=== PATIENT | female | born 1940 | race Two or more races ===

== ENCOUNTER 2024-10-06 17:57 | Inpatient (IN) | payer MEDICARE, MEDICAID ==
[~2024-10-06] VITALS: Ht 149.9 cm; Wt 40.4 kg
--- NOTE | 2024-10-06 18:54 | DVH ---
CHEST RADIOGRAPH REASON FOR EXAM: HTN COMPARISON: None TECHNIQUE: One view of the chest is provided FINDINGS: The cardiomediastinal silhouette is within normal limits for technique. There is aortic ath erosclerosis. There is no focal airspace disease. There is no significant pleural effusion. No acute bony abnormality is identified. IMPRESSION: No radiographic evidence of acute cardiopulmonary process.
--- NOTE | 2024-10-06 19:04 | ED.PDOC ---
HPI Comments HPI: This is a 83 year old female presenting to the ED with chief complaint of HTN. Patient reports that her blood pressure has been elevated since this morning, with her systolic BP being from 210-230s and her diastolic being around 140s. Patient relays that she took 2 doses of Losartan with no relief noted. Patient states she has been experiencing associated headache to the back of her head and generalized weakness. Patient notes she currently has a bladder infection at this time. Patient denies any N/V/D, chest pain, SOB, dizziness, fever, or chills. Initial Vitals BP: 166/72 HR: 76 RR: 16 O2 Sat: 98% Temp: 98.7F Past Medical history: HTN Past Surgical history: Denies Medications: Losartan Social History: Denies smoking, ETOH, and drug use. Allergies: Penicillins HPI: Poor Historian. Past Medical History: Past Surgical History: REVIEW OF SYSTEMS: CONSTITUTIONAL: Denies acute: fever, diaphoresis, chills, HEAD: Denies acute: photophobia Eyes: Denies acute: Double vision, vision loss, eye pain, eye discharge. EARS: Denies acute: tinnitus, hearing loss, ear discharge, ear pain, THROAT: Denies acute: sore throat, swelling, difficulty swallowing , pain with swallowing, change in voice. NECK: Denies acute: neck pain, neck swelling, stiff neck. HEART: Denies acute : chest pain, palpitations, LUNGS: Denies acute: SOB, wheezing, cough, hemoptysis ABDOMEN: Denies acute: abdominal pain, Nausea, Vomiting, diarrhea, melena , hematemesis, hematochezia SKIN: Denies acute: rash, redness, lesions, itchiness. EXTREMITIES: Denies acute: calf pain, numbness, tingling, weakness, denies pain in extremity. Denies acute: Low back pain. Neuro: Denies acute: focal neurological deficit, motor or sensory focal neurological deficit, tremors, seizure like activity, confusion, dizziness, change in mental status, loss of bowel or bladder function, cauda equina like symptoms. : Denies acute: dysuria, hematuria, flank pain, increase in urinary frequency. PSYCH: Denies acute: hallucination, suicidal ideation, homicidal ideation. FEMALE: Denies acute: abnormal vaginal bleeding, foul odor, unusual discharge. PHYSICAL EXAM: General: ---mild-----acute distress, awake and alert. Head: normocephalic, atraumatic. Neck: supple, trachea is midline, no swelling. Throat: Normal phonation. Eyes:, no erythema, no purulent discharge, no proptosis, no icterus. Heart: regular rate, regular rhythm, no significant murmur appreciated. Lungs: no apparent respiratory distress, Able to speak in full sentences. No wheezing, no rhonchi, no crackles. No stridors Clear to auscultation bilaterally. Abdomen: non tender to palpation, non distended, soft, no guarding, no rebound, + bowel sounds. Neuro: Awake, Alert, oriented to name, self, situation, follows commands GCS=15. Speech is normal. Skin: no petechia, no purpura, no cyanosis, non-pale, not jaundice. Lower extremities: --no - Pitting edema no deformity, no focal swelling, no calf TTP. Makes eye contact. moves all four extremities. Face: no apparent facial droop. ED COURSE: DISCLAIMER: This medical document was created using an electronic medical record system with voice recognition software and computerized dictation system. Although this document has been carefully reviewed, there might still be some phonetic and typographical errors. Occasional wrong-word or "sound-alike" substitutions may have occurred due to the inherent limitations of voice recognition software. These areas are purely typographical due to imperfections of the software programs and do not reflect any compromise in the patient's medical care. Please read the chart carefully and recognize, using context, where these substitutions have occurred. Chief Complaint: High Blood Pressure Time Seen by MD: 19:01 Reviewed Notes: Medications, Allergies Allergies: Coded Allergies: Penicillins (Verified Allergy, Unknown, 10/06/24) Information Source: Patient Mode of Arrival: EMS Was a procedure done? Was a procedure done?: No CP Differential Dx Differential Diagnosis: N/A Differential Diagnosis: Other (DDX include renal disease, thyroid disease, electrolyte abnormality, increased salt intake, medications non-compliance, undiagnosed HTN, Hypertensive crisis, hypertensive urgency., drug toxicity.) X-Ray, Labs, Meds, VS Vital Signs Date Time Temp Pulse Resp B/P (MAP) Pulse Ox O2 Delivery O2 Flow Rate FiO2 10/06/24 20:27 98.3 72 14 188/81 (116) 97 98.3 169/77 (107) 10/06/24 18:11 98.7 76 16 166/72 (103) 98 98.7 Lab Test 10/06/24 19:58 10/06/24 18:58 Range/Units Troponin I High Sensitivity 19 19 </=34 ng/L White Blood Count 6.9 4.4-10.8 10^3/uL Red Blood Count 4.85 4.0-5.20 10^6/uL Hemoglobin 14.5 12.2-16.2 g/dL Hematocrit 41.4 36.0-46.0 % Mean Corpuscular Volume 85.5 80.0-100.0 fL Mean Corpuscular Hemoglobin 29.8 28.0-32.0 pg Mean Corpuscular Hemoglobin Concent 34.9 32.0-36.0 g/dL Red Cell Distribution Width 12.5 11.8-14.3 % Platelet Count 297 140-450 10^3/uL Mean Platelet Volume 8.2 6.9-10.8 fL Neutrophils (%) (Auto) 71.0 37.0-80.0 % Lymphocytes (%) (Auto) 21.5 10.0-50.0 % Monocytes (%) (Auto) 5.4 0.0-12.0 % Eosinophils (%) (Auto) 1.3 0.0-7.0 % Basophils (%) (Auto) 0.8 0.0-2.0 % Neutrophils # (Auto) 4.9 1.6-8.6 10 ^3/uL Lymphocytes # (Auto) 1.5 0.4-5.4 10 ^3/uL Monocytes # (Auto) 0.4 0-1.3 10 ^3/uL Eosinophils # (Auto) 0.1 0-0.8 10 ^3/uL Basophils # (Auto) 0.1 0-0.2 10 ^3/uL Nucleated Red Blood Cells 0.0 % Sodium Level 127 L 136-145 mmol/L Potassium Level 4.5 3.5-5.1 mmol/L Chloride Level 94 L 98-107 mmol/L Carbon Dioxide Level 24 20-31 mmol/L Anion Gap 9 5-15 Blood Urea Nitrogen 12 9-23 mg/dL Creatinine 0.79 0.550-1.02 mg/dL Glomerular Filtration Rate Calc 75 >90 mL/min BUN/Creatinine Ratio 15.2 10.0-20.0 Serum Glucose 103 74-106 mg/dL Calcium Level 9.6 8.7-10.4 mg/dL [address] [address] Ph: [phone] DIAGNOSTIC IMAGING Diagnostic Imaging Report : [id number] Signed PATIENT: URI BURLESON ACCT: [id number] UNIT: [id number] : 1940 LOC: ER ROOM / BED: / AGE / SEX: 83 / F ADM STATUS: REG ER SERVICE 30 ORDERING PHYSICIAN: LALITA ZAIDI DO PROCEDURE(s): HWOCT - HEAD WITHOUT CONTRAST REASON: htn ORDER NUMBER(s): [id number], ACCESSION NUMBER(s): [id number] CT HEAD WITHOUT CONTRAST INDICATION: htn EXAM DATE: 10/06/2024 09:21 PM COMPARISON: None RADIATION DOSE: CTDIvol: 49.03 mGy, DLP: 68.13 mGy*cm PROCEDURE: CT scans of the head were obtained from the vertex to the skull base. Sagittal and coronal reconstructions were provided. All CT scans at this medical facility are performed using dose modulation techniques as appropriate to a performed exam including the following: Automated exposure control was utilized; adjustment of the MA and/or KV according to patient size; and use of iterative reconstruction technique. FINDINGS: Evaluation is degraded by motion artifact. No acute territorial infarct, intracranial hemorrhage, or mass effect. There are global involutional changes with compensatory prominence of the ventricles and sulci. Patchy periventricular and subcortical white matter hypoattenuation is nonspecific but may be related to small vessel ischemic disease. Chronic deep cerebral lacunar infarcts. There is tissue loss with gliosis/ encephalomalacia within the high left parietal lobe suggesting chronic infarct/insult. The orbits are normal. The paranasal sinuses and mastoid air cells are clear. The osseous structures are unremarkable. IMPRESSION: 1. No acute territorial infarct, intracranial hemorrhage, or mass effect. 2. Age-related involutional changes. Chronic ischemic changes as detailed. ATED BY: SOTERO STEVENS MD DICTATED DATE/TIME: 10/06/242144 SIGNED BY: SOTERO STEVENS MD SIGNED DATE/TIME: 10/06/242144 CC: [place] [id number] Ph: [phone] DIAGNOSTIC IMAGING Diagnostic Imaging Report : [id number] Signed PATIENT: URI BURLESON ACCT: [id number] UNIT: [id number] : 1940 LOC: ER ROOM / BED: / AGE / SEX: 83 / F ADM STATUS: REG ER SERVICE 24 ORDERING PHYSICIAN: LALITA ZAIDI DO PROCEDURE(s): CXRP - CHEST PORTABLE REASON: HTN ORDER NUMBER(s): [id number], ACCESSION NUMBER(s): [id number] CHEST RADIOGRAPH REASON FOR EXAM: HTN COMPARISON: None TECHNIQUE: One view of the chest is provided FINDINGS: The cardiomediastinal silhouette is within normal limits for technique. There is aortic atherosclerosis. There is no focal airspace disease. There is no significant pleural effusion. No acute bony abnormality is identified. IMPRESSION: No radiographic evidence of acute cardiopulmonary process. ATED BY: JEROME WILSON MD DICTATED DATE/TIME: 10/06/241851 SIGNED BY: JEROME WILSON MD SIGNED DATE/TIME: 10/06/241851 CC: Time of 1ST Reevaluation: 20:00 Reevaluation 1ST: Unchanged Patient Education/Counseling: Diagnosis, Treatment Family Education/Counseling: No Family Present Departure 1 Departure Time of Disposition: 19:49 Impression: Primary Impression: Hypertensive crisis Additional Impression: Hyponatremia Disposition: ADMITTED INPATIENT Admit to: [facility] Condition: Guarded Discharged With: Self Critical Care Note Critical Care Time?: Yes (45 min-critical care time only) Heart Score Heart Score: Heart Score Response (Comments) Value History Moderate Suspicious 1 EKG Normal 0 Age >65 2 Risk Factors >3 or Hx ASHD 2 Troponin Normal limit 0 Total 5 I personally scribed for LALITA ZAIDI DO ([email or web address]) on 10/06/24 at 19:04. Electronically submitted by Jax Rao ([email or web address]). LALITA ZAIDI DO Oct 06, 2024 19:04
[2024-10-06 19:18] LABS: Basophils # (auto) 0.1 10 ^3/uL (0-0.2); Basophils % (auto) 0.8 % (0.0-2.0); Eosinophils # (auto) 0.1 10 ^3/uL (0-0.8); Eosinophils % (auto) 1.3 % (0.0-7.0); Hematocrit 41.4 % (36.0-46.0); Hemoglobin 14.5 g/dL (12.2-16.2); Lymphocytes # (auto) 1.5 10 ^3/uL (0.4-5.4); Lymphocytes % (auto) 21.5 % (10.0-50.0); Mean Corpuscular Hemoglobin 29.8 pg (28.0-32.0); Mean Corpuscular Hgb Conc. 34.9 g/dL (32.0-36.0); Mean Corpuscular Volume 85.5 fL (80.0-100.0); Monocytes # (auto) 0.4 10 ^3/uL (0-1.3); Monocytes % (auto) 5.4 % (0.0-12.0); Neutrophils # (auto) 4.9 10 ^3/uL (1.6-8.6); Platelet Count (auto) 297 10^3/uL (140-450); Red Blood Cells 4.85 10^6/uL (4.0-5.20); Red Cell Distribution Width 12.5 % (11.8-14.3); White Blood Cell 6.9 10^3/uL (4.4-10.8)
[2024-10-06 19:29] LABS: Potassium 4.5 mmol/L (3.5-5.1)
[2024-10-06 19:30] LABS: Anion Gap 9 (5-15); Calcium 9.6 mg/dL (8.7-10.4); Carbon Dioxide 24 mmol/L (20-31)
[2024-10-06 19:35] LABS: BUN/Creatinine Ratio 15.2 (10.0-20.0); Blood Urea Nitrogen 12 mg/dL (9-23); Glucose 103 mg/dL (74-106)
[2024-10-06 19:36] LABS: Chloride 94 mmol/L (98-107); Sodium 127 mmol/L (136-145)
[2024-10-06] MEDS ORDERED: LABETALOL HCL 20 MG/4 ML VL IV ONE (21:30)
--- NOTE | 2024-10-06 21:47 | DVH ---
CT HEAD WITHOUT CONTRAST INDICATION: htn EXAM DATE: 10/06/2024 09:21 PM COMPARISON: None RADIATION DOSE: CTDIvol: 49.03 mGy, DLP: 68.13 mGy*cm PROCEDURE: CT scans of the head were obtained from the vertex to the skull base. Sagittal and coronal reconstructions were provided. All CT scans at this medical facility are performed using dose modulation techniques as appropriate t o a performed exam including the following: Automated exposure control was utilized; adjustment of th e MA and/or KV according to patient size; and use of iterative reconstruction technique. FINDINGS: Evaluation is degraded by motion artifact. No acute territorial infarct, intracranial hemorrhage, or mass effect. There are global involutional changes with compensatory prominence of the ventricles and sulci. Patchy periventricular and subcorti benny white matter hypoattenuation is nonspecific but may be related to small vessel ischemic disease. Chronic deep cerebral lacunar infarcts. There is tissue loss with gliosis/ encephalomalacia within th e high left parietal lobe suggesting chronic infarct/insult. The orbits are normal. The paranasal sinuses and mastoid air cells are clear. The osseous structures are unremarkable. IMPRESSION: 1. No acute territorial infarct, intracranial hemorrhage, or mass effect. 2. Age-related involutional changes. Chronic ischemic changes as detailed.
[2024-10-06] MEDS ORDERED: SODIUM CHLORIDE 0.9% 500 ML IV ONE (22:00)
[2024-10-06 23:01] LABS: Urine Bacteria None Seen /hpf (None Seen)
[2024-10-06 23:12] LABS: Urine Blood 1+ /uL (Negative); Urine Clarity Clear (Clear); Urine Color Colorless (Yellow); Urine Protein, UAD Negative (Negative); Urine Specific Gravity 1.007 (1.001-1.035); Urine Squamous Epithelial Cell FEW /hpf (<5); Urine Urobilinogen Normal (Negative); Urine WBC 2 /HPF (0-5)
[2024-10-06] MEDS ORDERED: MORPHINE SULFATE INJ 2 MG/ml SYRG IV PRN (23:30)
[2024-10-06] MEDS ORDERED: NITROGLYCERIN 0.4 MG SL TAB SL PRN (23:30)
[2024-10-06] MEDS ORDERED: LOSARTAN POTASSIUM 50 MG TAB PO ONE (23:30)
[2024-10-07] VITALS (7 sets, daily range): BP systolic 98–140; BP diastolic 47–72; PULSE 59–72; RESP 16–18; TEMP 97.2–98.6; O2SAT 96–98
--- NOTE | 2024-10-07 05:37 | DVHHPRES ---
History of Present Illness Resident Creating Document: JOANNA GILLETTEEAGLE RESIDENT History of Present Illness Patient is a 83-year-old female with past medical history of hypertension presented to the ED with a chief complaint of high blood pressure noted at home. Patient reports that about 20 years ago she was initially diagnosed with high blood pressure when her friend but it was transient likely from the emotional stress and she was not put on any medication for high blood pressure. Recently about 3 weeks ago she started to have headaches in the occipital region and associated blurred vision for which she was evaluated by her PCP and she was found to have elevated blood pressure following which she was started on losartan 50 mg daily. Yesterday the patient has started to have headache and when she checked her blood pressure she reported the SBP to be between 220-230 mmHg and she came to the hospital for further evaluation. She reported that she took 2 losartan 50 mg tablets at home but had no relief from the headache. She also reported of chest tightness but denied any chest pain, palpitations, shortness of breath, fever chills, nausea or vomiting, no abdominal pain. She reported that about a week ago she had dysuria and suprapubic pain for which she was given antibiotics. Past medical history: Hypertension Past surgical history: Denies Social history: Patient denies smoking, alcohol, drug use Home medications: Losartan 50 mg daily Review of Systems Review of Systems Patient seen and examined at the bedside Reports weakness, mild occipital headache No focal weakness, no blurred vision, no dysphagia, no slurred speech Allergies: Coded Allergies: Penicillins (Verified Allergy, Unknown, 10/06/24) Medications Current Medications Medications Dose Ordered Sig/Tyler Route Start Time Stop Time Status Last Admin Dose Admin Nitroglycerin 0.4 mg Q5MINP PRN SL 10/06/24 23:30 Morphine Sulfate 2 mg Q30M PRN IV 10/06/24 23:30 Losartan Potassium 50 mg DAILY PO 10/07/24 10:00 Exam Vital Signs Vital Signs Date Time Temp Pulse Resp B/P (MAP) Pulse Ox O2 Delivery O2 Flow Rate FiO2 10/07/24 01:58 97.5 61 18 140/56 (84) 96 97.5 10/07/24 01:58 Room Air* 0 21 Exam Gen - no pallor, no icterus, no cyanosis, no clubbing, no LAD, no edema . Skin - Patients skin is warm and dry. HEENT - normocephalic, atraumatic, moist mucous membranes. Neck - full ROM, no LAD, no JVD Pulmonary - B/L equal breath sounds, no crackles, no wheezing, no stridor. cardiovascular - regular S1,S2 heard, no added sounds, no murmurs heard. peripheral pulses normal radial 2+, pedal 2+. capillary refill normal <2 secs. GI - soft, nontender abdomen. no hepatospleenomegaly. No bruits heard, Bowel sounds normoactive Neurological - Patient is A/O X 3 . Bilateral upper extremity strength 5/5, bilateral lower extremity strength 5/5, no facial droop, normal speech, no tremor, no sensory deficiets. Labs/Xrays Labs Test 10/06/24 22:33 10/06/24 21:54 10/06/24 18:58 Range/Units Urine Color Colorless Yellow Urine Clarity Clear Clear Urine pH 7.0 5.0-9.0 Urine Specific [place] 1.007 1.001-1.035 Urine Protein Negative Negative Urine Ketones Negative Negative Urine Blood 1+ H Negative /uL Urine Nitrite Negative Negative Urine Bilirubin Negative Negative Urine Urobilinogen Normal Negative mg/dL Urine Leukocyte Esterase Negative Negative /uL Urine RBC 12 0 - 4 /hpf Urine Microscopic WBC 2 0-5 /HPF Urine Squamous Epithelial Cells Few <5 /hpf Urine Bacteria None seen None Seen /hpf Urine Glucose Normal Normal mg/dL Troponin I High Sensitivity 20 </=34 ng/L White Blood Count 6.9 4.4-10.8 10^3/uL Red Blood Count 4.85 4.0-5.20 10^6/uL Hemoglobin 14.5 12.2-16.2 g/dL Hematocrit 41.4 36.0-46.0 % Mean Corpuscular Volume 85.5 80.0-100.0 fL Mean Corpuscular Hemoglobin 29.8 28.0-32.0 pg Mean Corpuscular Hemoglobin Concent 34.9 32.0-36.0 g/dL Red Cell Distribution Width 12.5 11.8-14.3 % Platelet Count 297 140-450 10^3/uL Mean Platelet Volume 8.2 6.9-10.8 fL Neutrophils (%) (Auto) 71.0 37.0-80.0 % Lymphocytes (%) (Auto) 21.5 10.0-50.0 % Monocytes (%) (Auto) 5.4 0.0-12.0 % Eosinophils (%) (Auto) 1.3 0.0-7.0 % Basophils (%) (Auto) 0.8 0.0-2.0 % Neutrophils # (Auto) 4.9 1.6-8.6 10 ^3/uL Lymphocytes # (Auto) 1.5 0.4-5.4 10 ^3/uL Monocytes # (Auto) 0.4 0-1.3 10 ^3/uL Eosinophils # (Auto) 0.1 0-0.8 10 ^3/uL Basophils # (Auto) 0.1 0-0.2 10 ^3/uL Nucleated Red Blood Cells 0.0 % Sodium Level 127 L 136-145 mmol/L Potassium Level 4.5 3.5-5.1 mmol/L Chloride Level 94 L 98-107 mmol/L Carbon Dioxide Level 24 20-31 mmol/L Anion Gap 9 5-15 Blood Urea Nitrogen 12 9-23 mg/dL Creatinine 0.79 0.550-1.02 mg/dL Glomerular Filtration Rate Calc 75 >90 mL/min BUN/Creatinine Ratio 15.2 10.0-20.0 Serum Glucose 103 74-106 mg/dL Calcium Level 9.6 8.7-10.4 mg/dL Assessment/Plan Assessment/Plan Hypertensive urgency Hypertensive heart disease Hyponatremia - CT head without contrast showed patchy periventricular and subcortical white matter hypoattenuation which may be related to small-vessel ischemic disease, chronic deep cerebral lacunar infarcts, tissue loss with a gliosis/encephalomalacia within the high left parietal lobe suggesting chronic infarct - no focal deficits - echocardiogram pending - losartan 50 mg daily - urine studies pending PUD prophylaxis: Protonix Goals of care discussed with the patient for over 21 minutes. Full code Time spent: 39 minutes Plan discussed with Dr. 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
[2024-10-07] MEDS: PANTOPRAZOLE 40 MG TAB PO SCH (06:40)
[2024-10-07] MEDS: SODIUM CHLORIDE 0.9% 1,000 ML IV ONE (06:40)
[2024-10-07 07:26] LABS: Basophils # (auto) 0 10 ^3/uL (0-0.2); Basophils % (auto) 0.4 % (0.0-2.0); Eosinophils # (auto) 0.1 10 ^3/uL (0-0.8); Eosinophils % (auto) 1.8 % (0.0-7.0); Hematocrit 41.2 % (36.0-46.0); Hemoglobin 14.4 g/dL (12.2-16.2); Lymphocytes # (auto) 1.6 10 ^3/uL (0.4-5.4); Lymphocytes % (auto) 21.5 % (10.0-50.0); Mean Corpuscular Hemoglobin 30.6 pg (28.0-32.0); Mean Corpuscular Volume 87.4 fL (80.0-100.0); Monocytes # (auto) 0.5 10 ^3/uL (0-1.3); Neutrophils # (auto) 5.1 10 ^3/uL (1.6-8.6); Neutrophils % (auto) 69.3 % (37.0-80.0); Platelet Count (auto) 252 10^3/uL (140-450); Red Blood Cells 4.72 10^6/uL (4.0-5.20); Red Cell Distribution Width 12.6 % (11.8-14.3); White Blood Cell 7.3 10^3/uL (4.4-10.8)
[2024-10-07 07:39] LABS: Anion Gap 8 (5-15); Calcium 9.8 mg/dL (8.7-10.4); Carbon Dioxide 22 mmol/L (20-31); Chloride 100 mmol/L (98-107); Potassium 4.2 mmol/L (3.5-5.1)
[2024-10-07 07:43] LABS: Glucose 84 mg/dL (74-106)
[2024-10-07 07:45] LABS: BUN/Creatinine Ratio 12.7 (10.0-20.0); Blood Urea Nitrogen 10 mg/dL (9-23); Triglycerides 82 mg/dL (< 150)
[2024-10-07 08:02] LABS: Cholesterol 231 mg/dL (< 200); HDL Cholesterol 80 mg/dL (40-59); LDL Cholesterol 144 mg/dL (< 100); Sodium 130 mmol/L (136-145)
[2024-10-07 09:28] LABS: Amphetamine Screen, Urine Neg (NEGATIVE); Barbiturate Scree,Urine Neg (NEGATIVE); Benzodiazephine Screen, Urine Neg (NEGATIVE); Cocaine Screen, Urine Neg (NEGATIVE); Opiate Scree,Urine Neg (NEGATIVE); Phencyclidine Screen, Urine Neg (NEGATIVE)
--- NOTE | 2024-10-07 09:28 | DVH ---
EXAM DESCRIPTION: RENAL ULTRASOUND CLINICAL HISTORY: Hypertension COMPARISON: None TECHNIQUE: Multiplanar ultrasound with grayscale and doppler examination of the kidneys, bilateral renal arterie s, and aorta was performed. FINDINGS: The aorta is normal in caliber. Peak systolic velocity in the aorta 88 cm/s. The right kidney measures 8.3 cm. Peak systolic velocity in the right renal artery 40 cm/s, end diast olic velocity 11 cm/s. Resistive indices in the right kidney are 0.7. The right renal / Aortic PSV ra brenda is 0.7. The left kidney measures 7.9 cm. Peak systolic velocity in the left renal artery is 52 cm/s, end trevino tolic velocity 13 cm/s. Resistive indices in the left kidney are 0.7. Renal / Aortic PSV ratio on the left is 1.6. IMPRESSION: 1. No evidence of renal artery stenosis.
[2024-10-07 09:29] LABS: Cannabinoid Screen, Urine Neg (NEGATIVE)
[2024-10-07] MEDS: LOSARTAN POTASSIUM 50 MG TAB PO SCH (10:13)
--- NOTE | 2024-10-07 12:12 | DVHPNRES ---
Progress Note Objective vital signs Vital Sign Date Time Temp Pulse Resp B/P (MAP) Pulse Ox O2 Delivery O2 Flow Rate FiO2 10/07/24 10:13 132/72 10/07/24 09:00 97.8 61 16 98 97.8 10/07/24 08:00 Room Air* 0 21 Total Intake and Output 10/06/24 10/06/24 10/07/24 15:00 23:00 07:00 Intake Total 200 ml Balance 200 ml medications Current Medications Medications Dose Ordered Sig/Tyler Route Start Time Stop Time Status Last Admin Dose Admin Nitroglycerin 0.4 mg Q5MINP PRN SL 10/06/24 23:30 Morphine Sulfate 2 mg Q30M PRN IV 10/06/24 23:30 Losartan Potassium 50 mg DAILY PO 10/07/24 10:00 10/07/24 10:13 50 MG Pantoprazole Sodium 40 mg DAILY@0600 PO 10/07/24 06:00 10/07/24 06:40 40 MG laboratory and microbiology Laboratory Tests 10/07/24 07:00 Test 10/07/24 07:00 Range/Units Serum Glucose 84 74-106 mg/dL My Orders My Orders Orders - DOUGIE RICHEY Procedure Category Date Status Time Electrocardigram EKG 10/07/24 Logged 09:14 DOUGIE RICHEY Oct 07, 2024 12:12
[2024-10-07] MEDS ORDERED: MORPHINE SULFATE 4 MG/ML SYR/VIAL IV PRN (12:30)
[2024-10-07] MEDS: NIFEdipine ER 30 MG TAB PO ONE (12:41)
[2024-10-07] MEDS: ASPirin 81 mg TAB PO ONE (12:41)
[2024-10-07] MEDS ORDERED: ONDANSETRON HCL 4 MG/2 ML VIAL IV PRN (19:30)
--- NOTE | 2024-10-07 19:34 | DVHPNRES ---
Progress Note Date Seen: Oct 07, 2024 Resident Creating Document: DOUGIE RICHEY DAVE Has the PT tested + for MRSA If YES, has PT been informed?: No Medical Necessity Reason Pt with a Central, PICC or Fol: No Subjective Review of Systems Patient is a 83-year-old female with past medical history of hypertension presented to the ED with a chief complaint of high blood pressure noted at home. Patient reports that about 20 years ago she was initially diagnosed with high blood pressure when her friend but it was transient likely from the emotional stress and she was not put on any medication for high blood pressure. Recently about 3 weeks ago she started to have headaches in the occipital region and associated blurred vision for which she was evaluated by her PCP and she was found to have elevated blood pressure following which she was started on losartan 50 mg daily. Yesterday the patient has started to have headache and when she checked her blood pressure she reported the SBP to be between 220-230 mmHg and she came to the hospital for further evaluation. She reported that she took 2 losartan 50 mg tablets at home but had no relief from the headache. She also reported of chest tightness but denied any chest pain, palpitations, shortness of breath, fever chills, nausea or vomiting, no abdominal pain. She reported that about a week ago she had dysuria and suprapubic pain for which she was given antibiotics. Past medical history: Hypertension Past surgical history: Denies Social history: Patient denies smoking, alcohol, drug use Home medications: Losartan 50 mg daily Patient seen and examined at the bedside. Patient reports of intractable headache, visual disturbance, nausea, and still complaining of headache and visual blurriness. Patient reports: No new complaints, Feels better Changes from previous H/P or p: Changes Objective vital signs Vital Sign Date Time Temp Pulse Resp B/P (MAP) Pulse Ox O2 Delivery O2 Flow Rate FiO2 10/07/24 17:00 98.6 72 18 122/66 (84) 97 98.6 10/07/24 08:00 Room Air* 0 21 Total Intake and Output 10/06/24 10/06/24 10/07/24 15:00 23:00 07:00 Intake Total 200 ml Balance 200 ml medications Current Medications Medications Dose Ordered Sig/Tyler Route Start Time Stop Time Status Last Admin Dose Admin Nitroglycerin 0.4 mg Q5MINP PRN SL 10/06/24 23:30 Morphine Sulfate 2 mg Q30M PRN IV 10/06/24 23:30 Losartan Potassium 50 mg DAILY PO 10/07/24 10:00 10/07/24 10:13 50 MG Pantoprazole Sodium 40 mg DAILY@0600 PO 10/07/24 06:00 10/07/24 06:40 40 MG Amlodipine Besylate 5 mg DAILY PO 10/08/24 10:00 Aspirin 81 mg DAILY PO 10/08/24 10:00 Morphine Sulfate 2 mg Q30M PRN IV 10/07/24 12:30 Examination General Appearance: Alert, Oriented X3, Cooperative, in distress due to headache HEENT: Atraumatic, PERRLA, EOMI, Mucous membrane moist/pink. right pupil is mid dilated and round reactive to the light, left pupil is reactive to light , visual acuity has decreased on the left side Respiratory: Clear to auscultation, Normal air movement Cardiovascular: Regular rate, Normal S1, Normal S2, No murmurs, no chest wall tenderness Abdominal: Normal bowel sounds, Soft, No tenderness, No hepatospenomegaly, No masses Extremities: No clubbing, No cyanosis, No edema, Normal pulses, No tenderness/swelling Skin: No rashes, No breakdown, No significant lesion Neuro: Normal gait, Normal speech, Strength at 5/5 X4 ext, Normal tone, Sensation intact, Cranial nerves 3-12 NL, Reflexes 2+ Psych/Mental Status: Mental status NL, Mood NL laboratory and microbiology Laboratory Tests 10/07/24 07:00 Test 10/07/24 07:00 Range/Units Serum Glucose 84 74-106 mg/dL Labs and/or images reviewed: Labs reviewed by me, Image(s) reviewed by me Problem List/Assessment/Plan Problem List/Assessment/Plan Intractable headache, likely due to hypertensive encephalopathy Hypertensive encephalopathy Hypertensive emergency, leading to encephalopathy Hypertensive heart disease Hyponatremia History of hypertension Medication nonadherence * Patient reports of headache, visual disturbance, and nauseazofram * CT head without contrast showed patchy periventricular and subcortical white matter hypoattenuation which may be related to small-vessel ischemic disease, chronic deep cerebral lacunar infarcts, tissue loss with a gliosis/encephalomalacia within the high left parietal lobe suggesting chronic infarct * EKGs shows normal sinus rhythm with a significant ST or T-wave changes * Serial trop I and BNP is are within normal limits * Renal Doppler ultrasound shows no significant renal artery disease Plan/recommendation * Losartan 50 mg daily, amlodipine 5 mg daily * Aspirin * Nifedipine 90 mg, and injection labetalol has been given * Pain management DIET: Cardiac diet DVT PROPHYLAXIS: Lovenox GI PROPHYLAXIS:: Protonix CODE STATUS: Goal of care discussed for more than 18 minutes, full code DISPOSITION: Telemetry Patient's status and plan discussed with the patient. Case discussed with Dr. Brock. Plan discussed with: Patient, Other (RN) My Orders My Orders Orders - DOUGIE RICHEY Procedure Category Date Status Time Electrocardigram EKG 10/07/24 Logged 09:14 Amlodipine Tablet PHA 10/08/24 In Process (Norvasc Tablet) 10:00 Aspirin Tablet PHA 10/08/24 In Process 10:00 DOUGIE RICHEY RESDIENT Oct 07, 2024 19:34
--- NOTE | 2024-10-07 19:54 | DVHSR ---
APPROVED REPORT EXAM: LIMITED Two-dimensional and M-mode echocardiogram with Doppler and color Doppler. Blood Pressure: 138/56 mmHg INDICATION Dyspnea htn urgency RISK FACTORS Height: 4'11, Weight: 89 DIMENSIONS LVDd3.7 (3.8-5.7cm)LA (2D)3.7 (1.9-4.0cm)Aortic Root2.8 (2.0-3.7cm) LVDs2.6 (2.5-4.0cm)LA (MM) (1.9-4.0cm)Aortic Cusp Exc1.3 (1.5-2.0cm) EF (%) 55.0 (55-70%)Rt. Atrium3.1 (1.9-4.0cm)Asc. Aorta cm IVSd0.7 (0.7-1.1cm)RV (D)2.8 (1.8-2.4cm) PWd0.7 (0.7-1.1cm) Mitral Valve MitralMitral Stenosis E wave0.78m/sMV Mean GR.mmHg A wave0.95m/sMV Peak GR.54mmHg E/A ratio0.82D MVAcm2 DECEL [id number] 1/2 [place] Aortic Valve Aortic ValveAortic Stenosis V10.78m/Mariama Mean GR.3mmHg V21.05m/Mariama Peak GR.4mmHg LVOT Diameter2.0 (1.8-2.4cm)Doppler AVA2.33cm2 Pulmonic Valve V20.99m/s Tricuspid Valve TR Velocity2.17m/s [id number] Other Information Quality : Technically LimitedRhythm : Conclusion LVEF 50-55%, mild diastolic dysfunction No significant valve disease
[2024-10-07] MEDS: SODIUM CHLORIDE 0.9% 500 ML IV ONE (22:22)
[2024-10-08 01:00] VITALS: BP 98/45; PULSE 65; RESP 17; TEMP 97.3; O2SAT 97
[2024-10-08 05:00] VITALS: BP 91/49; PULSE 65; RESP 17; TEMP 97.2; O2SAT 98
[2024-10-08 06:15] LABS: Chloride 102 mmol/L (98-107); Potassium 4.3 mmol/L (3.5-5.1)
[2024-10-08 06:16] LABS: Anion Gap 9 (5-15); Calcium 9.4 mg/dL (8.7-10.4); Carbon Dioxide 23 mmol/L (20-31)
[2024-10-08] MEDS: SODIUM CHLORIDE 0.9% 500 ML IV ONE (06:17)
[2024-10-08 06:20] LABS: Basophils # (auto) 0 10 ^3/uL (0-0.2); Basophils % (auto) 0.8 % (0.0-2.0); Eosinophils # (auto) 0.2 10 ^3/uL (0-0.8); Eosinophils % (auto) 3.2 % (0.0-7.0); Hematocrit 39.8 % (36.0-46.0); Hemoglobin 13.8 g/dL (12.2-16.2); Lymphocytes # (auto) 1.5 10 ^3/uL (0.4-5.4); Lymphocytes % (auto) 25.2 % (10.0-50.0); Mean Corpuscular Hemoglobin 30.2 pg (28.0-32.0); Mean Corpuscular Hgb Conc. 34.6 g/dL (32.0-36.0); Mean Corpuscular Volume 87.3 fL (80.0-100.0); Monocytes # (auto) 0.5 10 ^3/uL (0-1.3); Monocytes % (auto) 8.5 % (0.0-12.0); Neutrophils # (auto) 3.7 10 ^3/uL (1.6-8.6); Neutrophils % (auto) 62.3 % (37.0-80.0); Nucleated Red Blood Cells % 0.1 %; Platelet Count (auto) 271 10^3/uL (140-450); Red Blood Cells 4.55 10^6/uL (4.0-5.20); White Blood Cell 5.9 10^3/uL (4.4-10.8)
[2024-10-08 06:21] LABS: BUN/Creatinine Ratio 18.8 (10.0-20.0); Blood Urea Nitrogen 18 mg/dL (9-23); Glucose 95 mg/dL (74-106)
[2024-10-08 06:23] LABS: Sodium 134 mmol/L (136-145)
[2024-10-08 08:00] VITALS: PULSE 68; PULSE 76; RESP 16; O2SAT 97
[2024-10-08 09:00] VITALS: BP 117/44; PULSE 76; RESP 14; TEMP 97.6; O2SAT 97
[2024-10-08] MEDS: ASPirin 81 mg TAB PO SCH (09:40)
[2024-10-08] MEDS ORDERED: amLODIPine BESYLATE 5 MG TAB PO SCH (10:00)
--- NOTE | 2024-10-08 12:04 | DVHDSRES ---
Discharge Summary Date of Admission Resident Creating Document: DOUGIE RICHEY RESDIENT Oct 06, 2024 at 23:24 Date of Discharge: Oct 08, 2024 Admitting Diagnosis Hypertensive emergency Labs/Diagnostic Data: Laboratory Results Test 10/08/24 05:19 10/07/24 07:00 10/06/24 22:33 10/06/24 21:54 White Blood Count 5.9 10^3/uL (4.4-10.8) Red Blood Count 4.55 10^6/uL (4.0-5.20) Hemoglobin 13.8 g/dL (12.2-16.2) Hematocrit 39.8 % (36.0-46.0) Mean Corpuscular Volume 87.3 fL (80.0-100.0) Mean Corpuscular Hemoglobin 30.2 pg (28.0-32.0) Mean Corpuscular Hemoglobin Concent 34.6 g/dL (32.0-36.0) Red Cell Distribution Width 13.0 % (11.8-14.3) Platelet Count 271 10^3/uL (140-450) Mean Platelet Volume 8.4 fL (6.9-10.8) Neutrophils (%) (Auto) 62.3 % (37.0-80.0) Lymphocytes (%) (Auto) 25.2 % (10.0-50.0) Monocytes (%) (Auto) 8.5 % (0.0-12.0) Eosinophils (%) (Auto) 3.2 % (0.0-7.0) Basophils (%) (Auto) 0.8 % (0.0-2.0) Neutrophils # (Auto) 3.7 10 ^3/uL (1.6-8.6) Lymphocytes # (Auto) 1.5 10 ^3/uL (0.4-5.4) Monocytes # (Auto) 0.5 10 ^3/uL (0-1.3) Eosinophils # (Auto) 0.2 10 ^3/uL (0-0.8) Basophils # (Auto) 0 10 ^3/uL (0-0.2) Nucleated Red Blood Cells 0.1 % Sodium Level 134 mmol/L (136-145) Potassium Level 4.3 mmol/L (3.5-5.1) Chloride Level 102 mmol/L (98-107) Carbon Dioxide Level 23 mmol/L (20-31) Anion Gap 9 (5-15) Blood Urea Nitrogen 18 mg/dL (9-23) Creatinine 0.96 mg/dL (0.550-1.02) Glomerular Filtration Rate Calc 59 mL/min (>90) BUN/Creatinine Ratio 18.8 (10.0-20.0) Serum Glucose 95 mg/dL (74-106) Calcium Level 9.4 mg/dL (8.7-10.4) Serum Osmolality 275 mOsm/kg (278-298) B-Type Natriuretic Peptide 69.38 pg/mL (0-100) Triglycerides Level 82 mg/dL (< 150) Cholesterol Level 231 mg/dL (< 200) LDL Cholesterol 144 mg/dL (< 100) HDL Cholesterol 80 mg/dL (40-59) Urine Color Colorless (Yellow) Urine Clarity Clear (Clear) Urine pH 7.0 (5.0-9.0) Urine Specific [place] 1.007 (1.001-1.035) Urine Protein Negative (Negative) Urine Ketones Negative (Negative) Urine Blood 1+ /uL (Negative) Urine Nitrite Negative (Negative) Urine Bilirubin Negative (Negative) Urine Urobilinogen Normal mg/dL (Negative) Urine Leukocyte Esterase Negative /uL (Negative) Urine RBC 12 /hpf (0 - 4) Urine Microscopic WBC 2 /HPF (0-5) Urine Squamous Epithelial Cells Few /hpf (<5) Urine Bacteria None seen /hpf (None Seen) Urine Osmolality 266 mOsm/kg Urine Sodium 60 mmol/L (40-220) Urine Glucose Normal mg/dL (Normal) Urine Opiates Screen Neg (NEGATIVE) Urine Fentanyl Screen Neg (NEGATIVE) Urine Barbiturates Screen Neg (NEGATIVE) Urine Phencyclidine Screen Neg (NEGATIVE) Urine Amphetamines Screen Neg (NEGATIVE) Urine Benzodiazepines Screen Neg (NEGATIVE) Urine Cocaine Screen Neg (NEGATIVE) Urine Cannabinoids Screen Neg (NEGATIVE) Troponin I High Sensitivity 20 ng/L (</=34) Other Laboratory Tests 10/08/24 05:19 Brief Hx & Hospital Course: Patient is a 83-year-old female with past medical history of hypertension presented to the ED with a chief complaint of high blood pressure noted at home. Patient reports that about 20 years ago she was initially diagnosed with high blood pressure when her friend but it was transient likely from the emotional stress and she was not put on any medication for high blood pressure. Recently about 3 weeks ago she started to have headaches in the occipital region and associated blurred vision for which she was evaluated by her PCP and she was found to have elevated blood pressure following which she was started on losartan 50 mg daily. Yesterday the patient has started to have headache and when she checked her blood pressure she reported the SBP to be between 220-230 mmHg and she came to the hospital for further evaluation. She reported that she took 2 losartan 50 mg tablets at home but had no relief from the headache. She also reported of chest tightness but denied any chest pain, palpitations, shortness of breath, fever chills, nausea or vomiting, no abdominal pain. She reported that about a week ago she had dysuria and suprapubic pain for which she was given antibiotics. Past medical history: Hypertension Past surgical history: Denies Social history: Patient denies smoking, alcohol, drug use Home medications: Losartan 50 mg daily Hospital course: Patient was admitted at the line of hypertensive emergency leading to encephalopathy. And was given injection labetalol, and resume home medicine losartan, and added nifedipine 60 mg and aspirin. EKGs showed normal sinus rhythm with no significant ST or T-wave changes. Head CT scan showed age- related involutional changes with chronic ischemic changes. Renal artery Doppler showed no significant renal artery disease. Echocardiogram showed mild diastolic dysfunction. Due to severe headache the patient was given morphine sulfate. Subsequently nifedipine was changed to amlodipine, blood pressure improved and amlodipine was discontinued. Patient was consulted regarding medication adherence. On 10/09/2023, the patient was feeling better since admission, headache and blurry vision were improved. Discharge plan discussed with the patient the patient discharged home. Discharge plan: Follow up with the PCP within 1 week of the discharge. Losartan 50 mg daily Operations or Procedures [place] [address] Ph: [phone] DIAGNOSTIC IMAGING Diagnostic Imaging Report : [id number] Signed PATIENT: URI BURLESON ACCT: [id number] UNIT: [id number] : 1940 LOC: [facility] AGE / SEX: 83 / F ADM STATUS: ADM IN SERVICE 6 ORDERING PHYSICIAN: TRISHA GILLETTE RESIDENT PROCEDURE(s): ECIDC - ECHO 2D MODE CARDIAC DOP REASON: HTN urgency ORDER NUMBER(s): [id number], ACCESSION NUMBER(s): [id number] APPROVED REPORT EXAM: LIMITED Two-dimensional and M-mode echocardiogram with Doppler and color Doppler. Blood Pressure: 138/56 mmHg INDICATION Dyspnea htn urgency RISK FACTORS Height: 4'11, Weight: 89 DIMENSIONS LVDd 3.7 (3.8-5.7cm) LA (2D) 3.7 (1.9-4.0cm) Aortic Root 2.8 (2.0- 3.7cm) LVDs 2.6 (2.5-4.0cm) LA (MM) (1.9-4.0cm) Aortic Cusp Exc 1.3 (1.5- 2.0cm) EF (%) 55.0 (55-70%) Rt. Atrium 3.1 (1.9-4.0cm) Asc. Aorta cm IVSd 0.7 (0.7-1.1cm) RV (D) 2.8 (1.8-2.4cm) PWd 0.7 (0.7-1.1cm) Mitral Valve Mitral Mitral Stenosis E wave 0.78m/s MV Mean GR. mmHg A wave 0.95m/s MV Peak GR. 54mmHg E/A ratio 0.8 2D MVA cm2 DECEL Time 482ms PRESS 1/2 Time ms Aortic Valve Aortic Valve Aortic Stenosis V1 0.78m/s AO Mean GR. 3mmHg V2 1.05m/s AO Peak GR. 4mmHg LVOT Diameter 2.0 (1.8-2.4cm) Doppler MCKAYLA 2.33cm2 Pulmonic Valve V2 0.99m/s Tricuspid Valve TR Velocity 2.17m/s RVSP 24mmHg Other Information Quality : Technically Limited Rhythm : Conclusion LVEF 50-55%, mild diastolic dysfunction No significant valve disease SIGNED BY: DARYA REED MD SIGNED DATE/TIME: 10/07/241953 CC: Condition at Discharge: Good Final Diagnosis/Problems List Hypertensive encephalopathy, likely due to hypertensive emergency Hypertensive emergency Medication and address History of hypertension Hypertensive heart disease Hyponatremia Medication and adherence Discharge Disposition: Home Discharge Instruct/Medications Diet: Cardiac 2g Na,low cholest Activity: No Restrictions, As Tolerated Follow Up/Referral: Follow up with the PCP within 1 week of the discharge. Medications: Continue losartan 50 mg daily Continue home meds Discharge Statement: "Patient was advised to return to the ER or call 911 if any headaches, dizziness, shortness of breath, chest pain, abdominal pain, bleeding, fevers, or worsening of medical condition. Patient was counseled about treatment plan, medications, possible side effects, patientverbalized understanding. All questions were answered to the best of my ability. This discharge took greater then 30 minutes in planning, reviewing documentation, counseling the patient, and discussing with other team members." ASSESSMENT ASSESSMENT Assessment Hypertensive emergency DOUGIE RICHEY [facility] Oct 08, 2024 12:04
[2024-10-08 13:00] VITALS: BP 134/65; PULSE 61; RESP 16; TEMP 97.7; O2SAT 98
== END 2024-10-08 14:01 | disposition home or self-care (01) | DRG 78 ==
LOC: EDBD 17:57 → ER 18:05 → OVERFLOW 23:24 → TELE-WESTW 10-07 00:01
PROVIDERS: ADMIT Student in an Organized Health Care Education/Training Program; ATTEND Emergency Medicine
DX: I67.4 Hypertensive encephalopathy (principal); E87.1 Hypo-osmolality and hyponatremia; I16.1 Hypertensive emergency; Z88.0 Allergy status to penicillin; I11.9 Hypertensive heart disease without heart failure; Z91.148 Patient's other noncompliance with medication regimen for other reason
CPT/HCPCS: 36415; 70450; 71045; 80048; 80061; 80307; 81001; 83880; 83930; 83935; 84300; 84484; 85025; 93306; 93975; 99291; G0378